=== PATIENT | male | born 1985 | race Caucasian/White ===

== ENCOUNTER 2017-08-04 04:11 | Emergency (ER) | payer OTHER ==
[2017-08-04 04:16] VITALS: BP 122/86; PULSE 108; RESP 18; TEMP 100.1
--- NOTE | 2017-08-04 04:35 | ED ---
General Adult HPI - General Chief complaint: ENT Stated complaint: Earache/Hearing Loss Time Seen by Provider: 08/04/17 04:15 Source: patient, RN notes reviewed Mode of arrival: ambulatory Limitations: no limitations - History of Present Illness Initial comments: 32-year-old male presenting with left ear pain and decreased hearing. Patient states he had an audiogram earlier in the week to his employer, they noted that he did have a large amount of earwax at that time. He has been attempting to remove this wax over the past several days. Patient also complains of one-week history of cough and URI symptoms. He does report that he has decreased hearing out of his left ear. No significant past medical history. No abdominal pain nausea vomiting. - Related Data Previous Rx's Medication Instructions Recorded Amoxicillin 500 mg PO Q12HR #20 cap 08/04/17 Ibuprofen [Motrin] 600 mg PO Q8HR PRN #24 tab 08/04/17 Loratadine [Claritin] 10 mg PO DAILY #30 tab 08/04/17 Allergies Allergy/AdvReac Type Severity Reaction Status Date / Time No Known Allergies Allergy Verified 08/04/17 04:16 Review of Systems ROS Statement: Those systems with pertinent positive or pertinent negative responses have been documented in the HPI. ROS Other: All systems not noted in ROS Statement are negative. Past Medical History Past Medical History: No Reported History History of Any Multi-Drug Resistant Organisms: None Reported Past Surgical History: No Surgical Hx Reported Additional Past Surgical History / Comment(s): vasectomy 09/2014, Past Psychological History: No Psychological Hx Reported Smoking Status: Never smoker Past Alcohol Use History: Occasional Past Drug Use History: None Reported General Exam Limitations: no limitations General appearance: alert, in no apparent distress Head exam: Present: atraumatic, normocephalic Eye exam: Present: normal appearance, PERRL ENT exam: Present: normal exam, normal external ear exam, other (Bilateral nasal congestion, left tympanic membrane, normal color like, effusion present, external auditory canal is clear of cerumen, there is some erythema and small amount of hemorrhage on the tympanic membrane.) Respiratory exam: Present: normal lung sounds bilaterally. Absent: respiratory distress Cardiovascular Exam: Present: regular rate, normal rhythm GI/Abdominal exam: Present: soft. Absent: distended, tenderness Extremities exam: Present: normal inspection, normal capillary refill. Absent: pedal edema Course Vital Signs 08/04/17 04:12 Temperature 100.1 F H Pulse Rate 108 H Respiratory 18 Rate Blood Pressure 122/86 O2 Sat by Pulse 98 Oximetry Medical Decision Making - Medical Decision Making 32-year-old male presenting with URI symptoms and ear pain. Pain likely accommodation of effusion, and trauma to the external auditory canal and tympanic membrane from cleaning. Patient does have mild temperature and URI symptoms, combined this with effusion, he will be prescribed amoxicillin for otitis media, is also instructed to continue to orally rehydrate, and will take Claritin. He will avoid putting any objects in his ear. He will follow-up with the primary care physician. Disposition Clinical Impression: URI (upper respiratory infection), Otitis media Disposition: HOME SELF-CARE Instructions: Otitis Media (ED), Earache (ED) Prescriptions: Amoxicillin 500 mg PO Q12HR #20 cap Ibuprofen [Motrin] 600 mg PO Q8HR PRN #24 tab PRN Reason: Pain Loratadine [Claritin] 10 mg PO DAILY #30 tab Referrals: None,Stated [Primary Care Provider] - 1-2 days Shanta Bai MD [REFERRING] - 1-2 days Time of Disposition: 04:26
== END 2017-08-04 04:47 | disposition home or self-care (01) ==
LOC: EC 04:11
DX: H66.92 Otitis media, unspecified, left ear (principal); J06.9 Acute upper respiratory infection, unspecified
CPT/HCPCS: 99283